=== PATIENT | female | born 1970 | race Two or more races ===

== ENCOUNTER 2018-03-22 21:12 | Emergency (ER) | payer MEDICAID, OTHER ==
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
[2018-03-23 00:09] VITALS: BP 143/74
== END 2018-03-23 00:09 | disposition home or self-care (01) ==
LOC: EDUNIT#
DX: S16.1XXA Strain of muscle, fascia and tendon at neck level, initial encounter (principal); S39.012A Strain of muscle, fascia and tendon of lower back, initial encounter; V49.60XA Unspecified car occupant injured in collision with unspecified motor vehicles in traffic accident, initial encounter